=== PATIENT | male | born 1965 | race Caucasian/White ===

== ENCOUNTER 2023-05-27 13:56 | Emergency (ER) | payer MEDICARE, OTHER ==
[~2023-05-27 13:56] MED LIST: Iopamidol 370 76% 100 ML VIAL ONE
[2023-05-27 14:25] LABS: #Basophils 0.1 thou/uL (0.0-0.2); #Eosinphils 0.4 thou/uL (0.0-0.7); #Lymphocytes 1.1 thou/uL (1.20-3.40); #Monocytes 0.7 thou/uL (0.11-0.59); #Neutrophils 3.3 thou/uL (1.40-6.50); %Basophils 1.7 % (0.0-1.0); %Eosinophils 7.2 % (0.0-10.0); %Lymphocytes 20.1 % (21.0-51.0); %Monocytes 11.7 % (0.0-10.0); %Neutrophils 59.3 % (42.0-75.0); Hematocrit 32.3 % (42.0-52.0); Hemoglobin 9.7 g/dL (14.0-18.0); Mean Corpuscular HGB CONC 30.1 g/dL (32.0-36.0); Mean Corpuscular Hemoglobin 25.4 pg (27.0-31.0); Mean Corpuscular Volume 84.4 fl (78.0-98.0); Mean Platelet Volume 7.1 fL (7.4-10.4); Platelet Count 242 10x3/uL (130-400); RBC Distribution Width 16.4 % (11.5-14.5); Red Blood Cell (RBC) Count 3.82 mill/uL (4.70-6.10); White Blood Cell (WBC) Count 5.6 10x3/uL (4.8-10.8)
[2023-05-27 14:42] LABS: Troponin I 0.024 ng/mL (< 0.028)
[2023-05-27] MEDS ORDERED: Nitroglycerin 2% Ointment 1 INCH/1 GM Packet ONE (14:44)
[2023-05-27] MEDS ORDERED: Aspirin Chewable 81 MG TAB ONE (14:44)
[2023-05-27 14:46] LABS: ALT (SGPT) 26 U/L (8-55); AST (SGOT) 23 U/L (5-34); Albumin 4.2 g/dL (3.5-5.0); Alkaline Phosphatase 176 U/L (40-110); Anion Gap 14 mmol/L (10-20); BUN (Urea Nitrogen) 14 mg/dL (8.4-25.7); Bilirubin, Total 0.4 mg/dL (0.2-1.2); Calc. Creatinine Clearance 0 mL/min (70-130); Carbon Dioxide 20 mmol/L (22-29); Chloride 107 mmol/L (98-107); Estimated GFR 77; Globulin 3.3 g/dL (2.4-3.5); Glucose 199 mg/dL (70-105); Lipase 27 U/L (8-78); Potassium 4.4 mmol/L (3.5-5.1); Protein, Total 7.5 g/dL (6.0-8.3); Sodium 137 mmol/L (136-145)
[2023-05-27] MEDS ORDERED: Sodium Chloride 0.9% 1,000 ML ONE (15:14)
[2023-05-27] MEDS ORDERED: Morphine 4 MG/ML VIAL ONE (15:14)
[2023-05-27] MEDS ORDERED: Morphine 2 MG/ML VIAL ONE ×2 (16:55→20:22)
[2023-05-27 17:55] LABS: Troponin I 0.023 ng/mL (< 0.028)
[2023-05-27] MEDS ORDERED: Promethazine HCl 25 MG/ML VIAL ONE (18:13)
[2023-05-27] MEDS ORDERED: Sodium Chloride 0.9% 0 ML ONE (18:13)
[2023-05-27] MEDS ORDERED: Lorazepam 2 MG/ML VIAL ONE (20:49)
== END 2023-05-27 21:00 | disposition home or self-care (01) ==
LOC: NAV ERS 13:56
DX: D64.9 Anemia, unspecified (principal); R91.1 Solitary pulmonary nodule; I70.1 Atherosclerosis of renal artery; I11.0 Hypertensive heart disease with heart failure; I50.9 Heart failure, unspecified; I25.10 Atherosclerotic heart disease of native coronary artery without angina pectoris; Z86.718 Personal history of other venous thrombosis and embolism; Z79.899 Other long term (current) drug therapy; Z79.82 Long term (current) use of aspirin; Z79.01 Long term (current) use of anticoagulants; E11.9 Type 2 diabetes mellitus without complications; Z79.84 Long term (current) use of oral hypoglycemic drugs
CPT/HCPCS: 36415; 71045; 71275; 74174; 80053; 83690; 84484; 85025; 85379; 93005; 96361; 96374; 96375; 96376; J2060; J2270; J2272; J2550; J7050; Q9967